=== PATIENT | female | born 1980 | race Caucasian/White ===

== ENCOUNTER 2018-02-01 22:41 | Emergency (ER) | payer SELFPAY ==
[~2018-02-01] VITALS: Ht 157.5 cm; Wt 72.7 kg
[2018-02-01 22:50] VITALS: Ht 157.5 cm; Wt 72.7 kg
[2018-02-01 23:12] LABS: APPEARANCE CLOUDY (CLEAR); BILIRUBIN NEGATIVE (NEGATIVE); COLOR YELLOW (YELLOW); GLUCOSE NEGATIVE (NEGATIVE); HCG URINE NEGATIVE (NEGATIVE); KETONE NEGATIVE (NEGATIVE); NITRITE NEGATIVE (NEGATIVE); PROTEIN TRACE mg/dL (NEGATIVE); UROBILINOGEN NORMAL (NORMAL)
[2018-02-01 23:15] LABS: BACTERIA MODERATE /hpf (NONE SEEN); EPITHELIAL CELLS 0-5 /hpf (0-5); WHITE CELLS - URINE >50 /hpf (0-5)
[2018-02-02] MEDS ORDERED: FLAGYL500 MG PO (00:04)
[2018-02-02] MEDS ORDERED: MACROBID100 MG PO (00:04)
[2018-02-02 00:28] VITALS: BP 114/73
== END 2018-02-02 00:28 | disposition home or self-care (01) ==
LOC: D.ER 22:41
PROVIDERS: Family Medicine
DX: N39.0 Urinary tract infection, site not specified (principal); Z20.2 Contact with and (suspected) exposure to infections with a predominantly sexual mode of transmission; F17.200 Nicotine dependence, unspecified, uncomplicated